=== PATIENT | female | born 1960 | race Caucasian/White ===

== ENCOUNTER 2016-04-07 16:32 | Emergency (ER) | payer MEDICAID, OTHER ==
[~2016-04-07] VITALS: Ht 167.6 cm; Wt 65.0 kg
[~2016-04-07 16:32] MED LIST: ALBU6.7H INH; ALPR-138 PO; BUSP10 PO; BUSP15TA PO; CYCL-36 PO; DEPA500T3 PO; FLUO10TA PO; FLUTI110I INH; LISI10TA PO; METO50TA PO; OXYC30TA3 PO; SERT50 PO; SUBO8MIS SL; VIST50CA PO
[2016-04-07 16:43] VITALS: BP 114/78; PULSE 91; RESP 17; TEMP 98.6; O2SAT 96
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
[2016-04-07 17:22] LABS: AUTOMATED NEUTROPHIL # 9.2 TH/MM3 (1.8-7.7); BASOPHIL % 0.3 % (0.0-2.0); EOSINOPHIL % 0.1 % (0.0-4.0); HEMATOCRIT 42.3 % (35.0-46.0); HEMO FLAGS DIFF FINAL; LYMPH % 24.1 % (9.0-44.0); LYMPHOCYTE # 3.3 TH/MM3 (1.0-4.8); MEAN CELL VOLUME 85.7 FL (80.0-100.0); MEAN CORPUSCULAR HEMOGLOBIN 28.5 PG (27.0-34.0); MEAN CORPUSCULAR HGB CONC 33.3 % (32.0-36.0); MONO % 7.1 % (0.0-8.0); NEUT % 68.4 % (16.0-70.0); PLATELET COUNT 317 TH/MM3 (150-450); RED BLOOD COUNT 4.94 MIL/MM3 (4.00-5.30); RED CELL DISTRIBUTION WIDTH 15.2 % (11.6-17.2); WHITE BLOOD COUNT 13.5 TH/MM3 (4.0-11.0)
[2016-04-07 17:26] LABS: BLOOD, URINE SMALL (NEG); COMMENT (UR) CULT NOT INDICATED; CULTURE IF INDICATED CULT NOT INDICATED; GLUCOSE,URINE NEG (NEG); HYALINE CAST, URINE 1 /lpf (RARE); KETONE, URINE NEG (NEG); MUCUS URINE FEW /lpf (OCC); NITRITE,URINE NEG (NEG); SQUAMOUS EPITHELIAL CELL URINE <1 /hpf (0-5); URINE COLOR YELLOW (YELLW/STRAW)
[2016-04-07 17:36] LABS: AMPHETAMINE, URINE NEG (NEG); BARBITURATES, URINE POS (NEG); COCAINE, URINE POS (NEG)
[2016-04-07 17:49] LABS: ANION GAP 11 MEQ/L (5-15); AST (GOT) 22 U/L (15-37); BICARBONATE 19.9 MEQ/L (21.0-32.0); BLOOD UREA NITROGEN 12 MG/DL (7-18); CHLORIDE 112 MEQ/L (98-107); GLOMERULAR FILTRATION RATE 59 ML/MIN (>89); POTASSIUM 3.7 MEQ/L (3.5-5.1); SODIUM (NA) 143 MEQ/L (136-145)
[2016-04-07 17:53] LABS: ALKALINE PHOSPHATASE 76 U/L (45-117); ALT (GPT) 36 U/L (10-53); TOTAL BILIRUBIN ADULT 0.2 MG/DL (0.2-1.0)
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
[2016-04-07] MEDS ORDERED: METR-1 PO (20:24)
== END 2016-04-07 23:55 | disposition short-term general hospital (02) ==
LOC: NEPC 16:32
DX: S02.2XXA Fracture of nasal bones, initial encounter for closed fracture (principal); S20.222A Contusion of left back wall of thorax, initial encounter; F19.10 Other psychoactive substance abuse, uncomplicated; T76.21XA Adult sexual abuse, suspected, initial encounter; I10 Essential (primary) hypertension; G47.30 Sleep apnea, unspecified; F17.200 Nicotine dependence, unspecified, uncomplicated; Z87.09 Personal history of other diseases of the respiratory system; Z86.59 Personal history of other mental and behavioral disorders; Z85.41 Personal history of malignant neoplasm of cervix uteri; Z85.3 Personal history of malignant neoplasm of breast; Z86.69 Personal history of other diseases of the nervous system and sense organs; Y35.813A Legal intervention involving manhandling, suspect injured, initial encounter
CPT/HCPCS: 70450; 70486; 71010; 80053; 80164; 80307; 80320; 81001; 85025

== ENCOUNTER 2016-09-30 22:00 | Inpatient (IN) | payer OTHER ==
[~2016-09-30] VITALS: Ht 165.1 cm; Wt 73.9 kg
[~2016-09-30 22:00] MED LIST changes: -ALBU6.7H INH; -ALPR-138 PO; -BUSP10 PO; -BUSP15TA PO; -CYCL-36 PO; -DEPA500T3 PO; -FLUO10TA PO; -FLUTI110I INH; -LISI10TA PO; -METO50TA PO; +METR-1 PO; -OXYC30TA3 PO; -SERT50 PO; -SUBO8MIS SL; -VIST50CA PO
[2016-09-30 23:55] VITALS: BP 134/73; PULSE 63; RESP 16; TEMP 98; O2SAT 98
[2016-10-01] MEDS ORDERED: diphenhydrAMINE HCL 50 MG/ML VIAL - HS PRN IM (01:45)
[2016-10-01] MEDS ORDERED: diphenhydrAMINE HCL 50 MG CAP - HS PRN PO (01:45)
[2016-10-01] MEDS ORDERED: MAGNESIUM HYDROXIDE SUSP 30 ML CUP PO PRN (01:45)
[2016-10-01] MEDS ORDERED: ALUMINUM/MAGNESIUM/SIMETH 30 ML CUP PO PRN (01:45)
[2016-10-01] MEDS ORDERED: ACETAMINOPHEN 325 MG TAB PO PRN (01:45)
[2016-10-01 06:33] VITALS: BP 114/66; PULSE 61; RESP 17; TEMP 98.9; O2SAT 96
[2016-10-01] MEDS: NICOTINE 21 MG/24 HR PATCH T-DERMAL SCH (08:27)
[2016-10-01] MEDS: FLUoxetine HCL 10 MG CAP PO SCH (09:45)
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
[2016-10-01 18:22] VITALS: BP 127/75; PULSE 77; RESP 18; TEMP 98.6; O2SAT 100
[2016-10-01] MEDS: REMOVE OLD NICOTINE PATCH T-DERMAL SCH (21:00)
[2016-10-01] MEDS: QUEtiapine FUMARATE 25 MG TAB PO SCH (21:21)
[2016-10-02 05:52] VITALS: BP 113/70; PULSE 57; RESP 17; TEMP 97.3; O2SAT 99
[2016-10-02] MEDS: QUEtiapine FUMARATE 25 MG TAB PO SCH ×2 (08:57→22:28)
[2016-10-02] MEDS: FLUoxetine HCL 10 MG CAP PO SCH (08:57)
[2016-10-02] MEDS: NICOTINE 21 MG/24 HR PATCH T-DERMAL SCH (08:57)
--- NOTE | 2016-10-02 13:20 | HHI.PYPN ---
Subjective Remarks Patient was seen for psychiatric reevaluation today, she reports feeling "a little better, but still down", she reports depression, low level of energy, persistent suicidal thoughts and impulsivity to cut herself. Patient reports decreased sleep, decreased appetite, generalized pessimism. However, patient says that she is committed to continue her psychiatric medications, get better be discharged back to the community once she is stable. Patient is oriented 3 , compliant with medications. No significant side effects. Review of Systems Other Not somatic complaints Objective Alert: Yes Beulah: Person, Date Mood: Depressed Affect: Restricted Memory Intact: Immediate, Recent, Remote Hallucinations: Other (no hallucinations) Delusions: No Delusion Type: Other Suicidal: Ideation (suicidal thoughts, no specific plan) Homicidal: Ideation (no HI) Insight/Judgment Poor Labs Ordered labs Vitals/IOs Vital Signs Date Time Temp Pulse Resp B/P Pulse Ox O2 Delivery O2 Flow Rate FiO2 10/02/16 05:52 97.3 57 17 113/70 99 Assessment & Plan Problem List: (1) Schizoaffective disorder, bipolar type Assessment & Plan: Today psychiatric evaluation patient continues to report symptomatology of depression, suicidal thoughts without specific plan. Patient has recently have inflicted multiple lacerations in her wrist due to increased depression. We will increase Prozac to 20 mg daily for depression. Continue Seroquel 50 twice a day. Extensive support, motivation and psychoeducation provided. ICD Code: F25.0 Assessment & Plan Estimated LOS: days Justification for Cont. Inpt. Patient has an increased risk of decompensation and suicidality at a lower level of care. Florentin Quijano MD Oct 02, 2016 13:20
[2016-10-02 15:23] VITALS: BP 96/58; PULSE 87; RESP 18; TEMP 98.8; O2SAT 98
[2016-10-02] MEDS: REMOVE OLD NICOTINE PATCH T-DERMAL SCH (21:00)
[2016-10-03 05:00] VITALS: BP 107/63; PULSE 70; RESP 16; TEMP 98.6; O2SAT 98
[2016-10-03] MEDS ORDERED: FLUoxetine HCL 10 MG CAP PO SCH (09:00)
[2016-10-03] MEDS ORDERED: NICOTINE 21 MG/24 HR PATCH T-DERMAL SCH (09:00)
[2016-10-03] MEDS: NICOTINE 21 MG/24 HR PATCH T-DERMAL SCH (09:00)
[2016-10-03] MEDS: QUEtiapine FUMARATE 25 MG TAB PO SCH (09:00)
[2016-10-03] MEDS ORDERED: FLUO10CA4 PO (10:30)
[2016-10-03] MEDS ORDERED: QUET1TAB7 PO (10:30)
[2016-10-03 12:07] LABS: ANION GAP 5 MEQ/L (5-15); BICARBONATE 28.8 MEQ/L (21.0-32.0); BLOOD UREA NITROGEN 12 MG/DL (7-18); CHLORIDE 108 MEQ/L (98-107); GLOMERULAR FILTRATION RATE 74 ML/MIN (>89); POTASSIUM 3.9 MEQ/L (3.5-5.1); SODIUM (NA) 142 MEQ/L (136-145)
[2016-10-03 12:09] LABS: FREE T4 0.85 NG/DL (0.76-1.46); HDL CHOLESTEROL 51.5 MG/DL (40.0-60.0); LDL CHOLESTEROL 103 MG/DL (0-99)
--- NOTE | 2016-10-03 13:11 | HHI.DS ---
Psychiatry Discharge Summary Inpatient Psychiatric care?: Yes Advance Directive: No Reason Not Provided: DENIED Mental Health AdvanceDirective: No Health Care Proxy: No Admission Admission Date Sep 30, 2016 at 22:00 Admission Diagnosis: (1) Schizoaffective disorder, bipolar type ICD Code: F25.0 Brief History The patient is a 55 years old [place] woman, domicile with boyfriend in [place], unemployed, supported by [facility], mother of 6 kids, with extensive psychiatric history of bipolar disorder, schizophrenia, schizoaffective disorder , multiple psychiatric hospitalizations, multiple ER visits on the Eduardo act, many of them here to [place], documentation review, history of suicidal attempts , self cutting behavior without SI, impulsive behavior, patient is supposed to be on lithium, Seroquel and Prozac, but she has not been taking her medications , patient also has an strong family psychiatric history, Lan history of endometrial cancer in remission, who was Eduardo acted by self due to self cutting behavior, suicidal ideation, with the plan of cutting herself, increased use of cocaine and noncompliant with medications. She was initially transferred to [facility] and presented to the transfer Center to [place] where he was finally accepted. On psychiatric evaluation today patient is found sleeping, easily arousable. Patient explains that in the last months she has been experiencing increased frustration, interpersonal problems with family members, social stressors. Patient says that she has been increasingly depressed, especially in the last week also due to multiple fights with her boyfriend. He says that she is under parole due to assault to an elderly "and that also have me under stressed". Yesterday patient had intrusive and persistent thoughts of harming herself by self cutting. She finally did multiple parts of her arm superficially. At the moment of this evaluation patient reports increased sadness, anhedonia, hopelessness, increased sensitivity to rejection and abandonment, irritability, frequent mood swings, and suicidal thoughts with the intention of self cutting. Patient was able to contract for safety in the unit. He denies visual and auditory hallucinations, delusions, no paranoia, no ideas of reference, no disorganized or aggressive behavior or agitation noted. She is is fully oriented 3, no delirium, no fluctuation of consciousness present. Patient reports daily use of cocaine and alcohol. She says that she has been in in early partial remission for over a month. Tobacco Use In Past 30 Days: 5 or More Cigarettes/Day Alcohol Use: Never Hospital Course The patient was admitted initially in the 2700 unit, she was brought to the hospital on the Eduardo act due to suicidal ideation, and a suicidal attempt by cutting her wrist with superficial lacerations, but also depression. Immediate safety precautions were taken. She had initially psychosocial and psychiatric assessment. Was initiated in medication for her depression and poor impulse control. Medication was titrated as patient needed and as she could tolerate. Patient was also initiated in individual and group psychotherapy in which she participated extensively and with positive results. Patient also showed very good response to psychotropic regimen. With the days depression decrease to level with the patient is not in immediate risk of suicidality. During this capitalization psychiatric team communicated with her fianc for collateral information and to coordinate a safe discharge planning. Patient also was seen by medical team for underlying medical conditions. At the moment of the discharge patient is a baseline, denies suicidal or homicidal ideation, she denies visual and auditory hallucinations and appropriate recommendations and appointments were already set up. Results Blood Pressure 107 / 63 Vital Signs Date Time Temp Pulse Resp B/P Pulse Ox O2 Delivery O2 Flow Rate FiO2 10/03/16 05:00 98.6 70 16 107/63 98 Laboratory Tests Test 10/03/16 10:12 Chloride Level 108 MEQ/L (98-107) Estimat Glomerular Filtration 74 ML/MIN (>89) Rate Triglycerides Level 155 MG/DL (42-150) LDL Cholesterol 103 MG/DL (0-99) Laboratory Results Test 10/03/16 10:12 Triglycerides Level 155 MG/DL (42-150) Cholesterol Level 185 MG/DL (120-200) LDL Cholesterol 103 MG/DL (0-99) HDL Cholesterol 51.5 MG/DL (40.0-60.0) Summary of Procedures No procedures done Pending results at discharge: No Medications # of Antipsychotic meds at D/C: 1 Approp Antipsych med options 1 - Minimum of three failed multiple trials of monotherapy. 2 - Documented plan to taper to monotherapy due to previous use of multiple meds OR cross-taper in progress at D/C. 3 - Documentation of augmentation of Clozapine. 4 - Justification other than those listed in allowable values 1-3, document here : Discharge Discharge Date: Oct 03, 2016 Discharge Diagnosis: (1) Schizoaffective disorder, bipolar type ICD Code: F25.0 Mental Status Exam at Disch woman, age appearing, good hygiene, [facility], overweight, calm , cooperative and pleasant. Her speech is fluent and is spontaneous, her mood is"I feel fine now", her affect is euthymic, thought process is logical, coherent and relevant. Her thought content is devoid of suicidal and homicidal ideation, visual and auditory hallucinations. There is no paranoia, no delusions, no obsessions. Her insight, impulse control and judgment are good. Her cognition is intact. Pt Condition on Discharge: Stable Discharge Disposition: Discharge Home Discharge Instructions Diet Instructions: Heart Healthy Diet Scheduled Appointment: [facility] Appointment Date: Oct 04, 2016 Appointment Time: 7:30 a.m. Discharge Time > 30 minutes Discharge/Advance Care Plan Health Problems: (1) Schizoaffective disorder, bipolar type Goals to promote your health * To prevent worsening of your condition and complications * To maintain your health at the optimal level Directions to meet your goals Take your medications as prescribed Follow your dietary instruction Follow activity as directed Keep your appointments as scheduled Take your immunizations and boosters as scheduled If your symptoms worsen call your PCP, if no PCP go to Urgent Care Center or Emergency Room For 24/ questions related to your inpatient stay or results of tests pending at discharge, please contact Dr. Florentin Quijano at Smoking is Dangerous to Your Health. Avoid second hand smoking Florentin Quijano MD Oct 03, 2016 13:11
[2016-10-03 16:52] LABS: HEMOGLOBIN A1b 0.8 %; HEMOGLOBIN F 1.1 %; HEMOGLOBIN LA1C 1.9 %; HEMOGLOBIN P3 3.7 %
== END 2016-10-03 14:00 | disposition home or self-care (01) | DRG 885 ==
LOC: H270 22:00 → H260 10-01 15:57
PROVIDERS: ADMIT Psychiatry & Neurology Psychiatry; ATTEND Psychiatry & Neurology Psychiatry
DX: F25.0 Schizoaffective disorder, bipolar type (principal); Z85.42 Personal history of malignant neoplasm of other parts of uterus
CPT/HCPCS: 80048; 80061; 83036; 84439